=== PATIENT | male | born 1950 | race Caucasian/White ===

== ENCOUNTER → 2017-01-28 | Outpatient (CLI) | payer OTHER ==
[2012-07-30 09:55] VITALS: BP 114/59
--- NOTE | 2017-01-28 17:42 | MRI ---
HISTORY: Shoulder pain. Noncontrast MRI exam of the right shoulder. Technique: Multiplanar and multisequence MR examination of the shoulder is performed at 1.5 Samantha wit hout the use of IV contrast. Findings: Rotator cuff: The subscapularis is intact. No medial displacement of the biceps tendon is seen. There is tendinosis of the posterior supraspinatus, distally, at the footplate. Also seen is tendinosis of the anterior infraspinatus at the footplate without full-thickness rotator cuff tear seen. No focal rotator cuff tear or rotator cuff atrophy is seen. Intra-articular biceps: No injury, tear, or displacement observed. Glenoid labrum: No displaced labral tear or para-labral cyst formation is seen. Acromioclavicular joint: Moderate AC joint degenerative arthrosis with T2 intense edema seen encircli ng the AC joint which can be seen with a chronic AC joint sprain versus edema from AC joint degenerat e arthrosis without evidence for david AC joint widening or separation. Glenohumeral joint: No joint effusion, focal joint erosion, or loose body seen. Bone marrow: No altered T2 signal seen to suggest an acute fracture, bone marrow contusion, or aggres sive bone marrow lesion. No Hill-Sachs deformity or bony Bankart lesion is seen, either. No other bon e marrow signal abnormality is observed. Other: No concerning or infiltrative soft tissues masses are seen. IMPRESSION: Moderate AC joint degenerative arthrosis with T2 intense edema seen encircling the AC joint which can be seen with a chronic AC joint sprain versus edema from AC joint degenerate arthrosis without evide nce for david AC joint widening or separation, however. No high-grade or full-thickness rotator cuff tear seen. No acute fracture is seen. Reported By:
== END ==
LOC: RAD 13:45
PROVIDERS: ATTEND Internal Medicine
DX: M25.511 Pain in right shoulder (principal)
CPT/HCPCS: 73221

== ENCOUNTER → 2017-02-04 | Outpatient (CLI) | payer OTHER ==
[2012-07-30 09:55] VITALS: BP 114/59
[2017-02-04 08:49] LABS: BLOOD UREA NITROGEN 10 mg/dL (7-18); CALCIUM 9.6 mg/dL (8.5-10.1); CHLORIDE 101 mmol/L (98-107); COR NA(FOR HYPERGLY) 139 mmol/L (136-145); CREATININE 1.13 mg/dL (0.70-1.30); SODIUM 139 mmol/L (136-145); eGFR BLACK RACES > 60 (>60); eGFR NON BLACK RACES > 60 (>60)
--- NOTE | 2017-02-05 14:57 | CT ---
Indication: Abdominal pain . Exam: CT abdomen and pelvis with contrast. Technique: Axial spiral images were obtained from lung bases through the pubic symphysis after admini stration of oral and IV contrast. Automated does control was utilized. Findings: There are mild linear densities scattered along the left lung base anterolaterally. The elizabeth er and spleen are normal size and density. The gallbladder has been removed with clips in the gallbla dder fossa. The bile ducts, pancreas, and adrenals are normal. The kidneys are normal size with no hy dronephrosis, renal stone, or mass. The ureters are normal caliber with no adenopathy or ascites seen . There are diverticula scattered throughout the left colon with mild muscular hypertrophy throughout the sigmoid region. No pericolonic inflammation is seen. The prostate gland is mildly enlarged and h eterogeneous throughout. There is mild fat density along the left inguinal region with no bowel loops in the area. The appendix is not well visualized and there is no pericecal inflammation. There are m oderate degenerative changes seen throughout the spine with no aggressive osseous lesion. Impression: Mild subsegmental linear scarring or atelectasis along the left lung base Status post cholecystectomy with no acute intra-abdominal abnormality seen. Moderate diverticulosis of the left colon which is most severe along the sigmoid region with no obvio us pericolonic inflammation. Mild prostatic enlargement rec and a probable small left inguinal hernia , recommend clinical follow- up. Reported By:
== END | disposition home or self-care (01) | DRG 392 ==
LOC: RAD 08:08
PROVIDERS: ATTEND Internal Medicine Gastroenterology
DX: K58.9 Irritable bowel syndrome, unspecified (principal); Z90.49 Acquired absence of other specified parts of digestive tract; N40.0 Benign prostatic hyperplasia without lower urinary tract symptoms
CPT/HCPCS: 36415; 74177; 80048; A4222